=== PATIENT | male | born 1950 | race Caucasian/White ===

== ENCOUNTER 2018-10-28 12:32 | Emergency (ER) | payer OTHER ==
[~2018-10-28 12:32] MED LIST: LISI20TA29 PO
--- NOTE | 2018-10-28 12:43 | ER Report ---
History and Physical Time Seen By MD: 12:42 Hx. of Stated Complaint: saw his pcp for high bp. was told to keeping taking his lisinopril and chlorthalidon, and recheck in a month. pt states he was on vacation recently and missed several doses of his bp meds. HPI/ROS CHIEF COMPLAINT: Hypertension HISTORY OF PRESENT ILLNESS: 68-year-old male patient presents to emergency room with complaint of hypertension. Patient states that he has had a high blood pressure that he has noted for approximately 5-7 days. Patient states that he is not had any problems. Denies having any headache, chest pain, shortness of breath, nausea, vomiting, hematuria. Patient states that he has been taking his blood pressure medication. He did go see his primary care provider who told him to continue taking his blood pressure medication and follow-up in a month. He states that he was unhappy with that and came in for further evaluation. Patient denies having any fevers or chills. He states that he got back from vacation and noted he was having problems with his blood pressure he did have an episode where he was hot and sweaty. He states that resolved at night. REVIEW OF SYSTEMS: Respiratory: No cough, no dyspnea. Cardiovascular: No chest pain, no palpitations. Gastrointestinal: No vomiting, no abdominal pain. Musculoskeletal: No back pain. Allergies: Coded Allergies: No Known Drug Allergies (Unverified , 12/05/15) Home Meds Active Scripts Clonidine Hcl (CLONIDINE HCL) 0.1 Mg Tablet, 0.1 MG PO BID PRN for HYPERTENSION, #30 TAB Take 1 tab twice a day as needed for hypertension, Blood pressure >160/100 Prov:ANSELMO LYNCH [employer] SAF[employer]Y ENGINEER 10/28/18 Lisinopril (LISINOPRIL) 20 Mg Tablet, 20 MG PO QDAY, #30 TAB Prov:JACE SAMPSON TOP CLEANER 12/05/15 Past Medical/Surgical History Patient has a past medical history of hypertension. Patient surgical history left hip surgery. Reviewed Nurses Notes: Yes Hx Smoking: Yes Smoking Status: Current: Some Days Smoker Constitutional Vital Sign - Last 24 Hours 10/28/18 10/28/18 10/28/18 10/28/18 12:38 12:40 13:10 13:40 Temp 97.5 Pulse 79 76 73 73 Resp 18 B/P (MAP) 172/130 Pulse Ox 90 90 88 87 O2 Delivery Room Air 10/28/18 10/28/18 14:01 14:10 Pulse 66 B/P (MAP) 122/97 (105) Pulse Ox 92 Physical Exam General Appearance: The patient is alert, has no immediate need for airway protection and no current signs of toxicity. Respiratory: Chest is non tender, lungs are clear to auscultation. Cardiac: regular rate and rhythm Gastrointestinal: Abdomen is soft and non tender, no masses, bowel sounds normal. Musculoskeletal: Neck: Neck is supple and non tender. Extremities have full range of motion and are non tender. Skin: No rashes or lesions. DIFFERENTIAL DIAGNOSIS: After history and physical exam differential diagnosis was considered for hypertension, hypertensive urgency, hypertensive emergency. Medical Decision Making Data Points Result Diagram: 10/28/18 1303 10/28/18 1303 Laboratory Hematology Test 10/28/18 13:03 10/28/18 13:55 Red Blood Count 4.71 M/uL (4.00-5.60) Mean Corpuscular Volume 97.1 fL (80.0-96.0) Mean Corpuscular Hemoglobin 32.5 pg (26.0-33.0) Mean Corpuscular Hemoglobin Concent 33.5 g/dL (32.0-36.0) Red Cell Distribution Width 13.8 % (11.5-14.5) Mean Platelet Volume 8.5 fL (7.2-11.1) Neutrophils (%) (Auto) 66.3 % (39.4-72.5) Lymphocytes (%) (Auto) 22.3 % (17.6-49.6) Monocytes (%) (Auto) 10.5 % (4.1-12.4) Eosinophils (%) (Auto) 0.5 % (0.4-6.7) Basophils (%) (Auto) 0.4 % (0.3-1.4) Nucleated RBC Relative Count (auto) 0.0 /100WBC Neutrophils # (Auto) 2.5 K/uL (2.0-7.4) Lymphocytes # (Auto) 0.8 K/uL (1.3-3.6) Monocytes # (Auto) 0.4 K/uL (0.3-1.0) Eosinophils # (Auto) 0.0 K/uL (0.0-0.5) Basophils # (Auto) 0.0 K/uL (0.0-0.1) Nucleated RBC Absolute Count (auto) 0.00 K/uL Sodium Level 133 mmol/L (137-145) Potassium Level 3.4 mmol/L (3.5-5.0) Chloride Level 98 mmol/L (98-107) Carbon Dioxide Level 26 mmol/L (22-30) Blood Urea Nitrogen 13 mg/dl (9-21) Creatinine 1.00 mg/dl (0.66-1.25) Glomerular Filtration Rate Calc > 60.0 Random Glucose 105 mg/dl (75-110) Calcium Level 9.0 mg/dl (8.4-10.2) Total Bilirubin 0.9 mg/dl (0.2-1.3) Aspartate Amino Transf (AST/SGOT) 33 U/L (0-35) Alanine Aminotransferase (ALT/SGPT) 43 U/L (0-56) Alkaline Phosphatase 78 U/L (0-126) Troponin I < 0.012 ng/ml Total Protein 7.5 g/dl (6.3-8.2) Albumin 4.1 g/dl (3.5-5.0) Urine Color Straw Urine Clarity Clear Urine pH 7.0 pH (4.8-9.5) Urine Specific [place] 1.009 Urine Protein Negative mg/dL (NEGATIVE) Urine Glucose (UA) Negative mg/dL (NEGATIVE) Urine Ketones Negative mg/dL (NEGATIVE) Urine Blood Negative (NEGATIVE) Urine Nitrite Negative (NEGATIVE) Urine Bilirubin Negative (NEGATIVE) Urine Urobilinogen Negative mg/dL (0.2-1.9) Urine Leukocyte Esterase Negative (NEGATIVE) Urine RBC <1 /HPF (0-2/HPF) Urine WBC <1 /HPF (0-5/HPF) Urine Squamous Epithelial Cells None /LPF (</=FEW) Urine Bacteria Negative /HPF (NONE-FEW) Urine Mucus None /HPF (NONE-FEW) Chemistry Test 10/28/18 13:03 10/28/18 13:55 White Blood Count 3.8 k/uL (4.5-11.0) Red Blood Count 4.71 M/uL (4.00-5.60) Hemoglobin 15.3 g/dL (14.0-18.0) Hematocrit 45.7 % (42.0-52.0) Mean Corpuscular Volume 97.1 fL (80.0-96.0) Mean Corpuscular Hemoglobin 32.5 pg (26.0-33.0) Mean Corpuscular Hemoglobin Concent 33.5 g/dL (32.0-36.0) Red Cell Distribution Width 13.8 % (11.5-14.5) Platelet Count 211 K/uL (150-450) Mean Platelet Volume 8.5 fL (7.2-11.1) Neutrophils (%) (Auto) 66.3 % (39.4-72.5) Lymphocytes (%) (Auto) 22.3 % (17.6-49.6) Monocytes (%) (Auto) 10.5 % (4.1-12.4) Eosinophils (%) (Auto) 0.5 % (0.4-6.7) Basophils (%) (Auto) 0.4 % (0.3-1.4) Nucleated RBC Relative Count (auto) 0.0 /100WBC Neutrophils # (Auto) 2.5 K/uL (2.0-7.4) Lymphocytes # (Auto) 0.8 K/uL (1.3-3.6) Monocytes # (Auto) 0.4 K/uL (0.3-1.0) Eosinophils # (Auto) 0.0 K/uL (0.0-0.5) Basophils # (Auto) 0.0 K/uL (0.0-0.1) Nucleated RBC Absolute Count (auto) 0.00 K/uL Glomerular Filtration Rate Calc > 60.0 Calcium Level 9.0 mg/dl (8.4-10.2) Total Bilirubin 0.9 mg/dl (0.2-1.3) Aspartate Amino Transf (AST/SGOT) 33 U/L (0-35) Alanine Aminotransferase (ALT/SGPT) 43 U/L (0-56) Alkaline Phosphatase 78 U/L (0-126) Troponin I < 0.012 ng/ml Total Protein 7.5 g/dl (6.3-8.2) Albumin 4.1 g/dl (3.5-5.0) Urine Color Straw Urine Clarity Clear Urine pH 7.0 pH (4.8-9.5) Urine Specific [place] 1.009 Urine Protein Negative mg/dL (NEGATIVE) Urine Glucose (UA) Negative mg/dL (NEGATIVE) Urine Ketones Negative mg/dL (NEGATIVE) Urine Blood Negative (NEGATIVE) Urine Nitrite Negative (NEGATIVE) Urine Bilirubin Negative (NEGATIVE) Urine Urobilinogen Negative mg/dL (0.2-1.9) Urine Leukocyte Esterase Negative (NEGATIVE) Urine RBC <1 /HPF (0-2/HPF) Urine WBC <1 /HPF (0-5/HPF) Urine Squamous Epithelial Cells None /LPF (</=FEW) Urine Bacteria Negative /HPF (NONE-FEW) Urine Mucus None /HPF (NONE-FEW) Urinalysis Test 10/28/18 13:55 Urine Color Straw Urine Clarity Clear Urine pH 7.0 pH (4.8-9.5) Urine Specific [place] 1.009 Urine Protein Negative mg/dL (NEGATIVE) Urine Glucose (UA) Negative mg/dL (NEGATIVE) Urine Ketones Negative mg/dL (NEGATIVE) Urine Blood Negative (NEGATIVE) Urine Nitrite Negative (NEGATIVE) Urine Bilirubin Negative (NEGATIVE) Urine Urobilinogen Negative mg/dL (0.2-1.9) Urine Leukocyte Esterase Negative (NEGATIVE) Urine RBC <1 /HPF (0-2/HPF) Urine WBC <1 /HPF (0-5/HPF) Urine Squamous Epithelial Cells None /LPF (</=FEW) Urine Bacteria Negative /HPF (NONE-FEW) Urine Mucus None /HPF (NONE-FEW) EKG/Imaging EKG Interpretation 12 lead EKG from [facility]: Rhythm: normal sinus rhythm with a PVC, ventricular rate of 65 bpm [place]: normal QRS: normal ST segments: normal Imaging Exam type: CHEST PA LAT History: hypertension Comparison: None. Findings: The lungs are free of acute effusions, infiltrates or edema. The cardiac swelling is normal in size. The trachea is midline. There is a gentle dextroconvex scoliosis of the thoracic spine. IMPRESSION: 1. No acute cardiopulmonary process is seen Report Dictated By: Joy Miles MD at 10/28/2018 1:34 PM Report E-Signed By: Joy Miles MD at 10/28/2018 1:35 PM ED Course/Re-evaluation ED Course Patient was admitted to examined, history and physical were obtained. Differential diagnoses were considered. On examination lungs are clear, heart is regular, abdomen is soft nontender. Patient did have a elevated blood pressure of 170/130. Patient denied having any problems or concerns at this time. A CBC, CMP, troponin, chest x-ray were done. I did review the EKG which was done at the urgent care which showed a normal sinus rhythm with PVCs. Troponin was negative, labs were unremarkable, chest x-ray was negative. Patient was then treated with 20 mg of labetalol. I did have significant improvement on his blood pressure and he went down to 128/88. I discussed the results with the patient. We will go ahead and discharge patient home at this time. I will have him follow-up with his primary care provider in a month that she had recommended. We will give him a supply of clonidine that he can take as needed for blood pressure of 160/100. Patient verbalized understanding and agreement with plan. Patient will return to emergency room with any worsening of his condition. Decision to Disposition Date: Oct 28, 2018 Decision to Disposition Time: 14:25 Depart Departure Latest Vital Signs Vital Signs Date Time Temp Pulse Resp B/P (MAP) Pulse Ox O2 Delivery O2 Flow Rate FiO2 10/28/18 14:10 66 92 10/28/18 14:01 122/97 (105) 10/28/18 12:38 97.5 18 Room Air Impression: Primary Impression: Hypertension Condition: Improved Disposition: HOME OR SELF-CARE New Scripts Clonidine Hcl (CLONIDINE HCL) 0.1 Mg Tablet 0.1 MG PO BID PRN for HYPERTENSION, #30 TAB Take 1 tab twice a day as needed for hypertension, Blood pressure >160/100 Prov: ANSELMO LYNCH 10/28/18 Patient Instructions: Hypertension (ED) Additional Instructions: Continue with normal medications. Follow up with Radha as directed in 1 month. Take the Clonidine as needed for blood pressure >160/100. Return to the ER if condition worsens. Get plenty of rest. Continue to monitor blood pressure. Problem Qualifiers Primary Impression: Hypertension Hypertension type: essential hypertension Qualified Codes: I10 - Essential (primary) hypertension ANSELMO LYNCH Oct 28, 2018 12:43
[2018-10-28 13:14] LABS: PLATELET COUNT, AUTOMATED 211 K/uL (150-450)
--- NOTE | 2018-10-28 13:40 | RADIOLOGY IMAGING REPORT ---
FACILITY: [facility] PATIENT NAME: Abhinav Adams : 1950 MR: [id number] V: [id number] EXAM DATE: ORDERING PHYSICIAN: ANSELMO LYNCH TECHNOLOGIST: Location: [facility] Patient: Abhinav Adams : 1950 Visit/Account:[id number] Date of Sevice: 10/28/2018 Exam type: CHEST PA LAT History: hypertension Comparison: None. Findings: The lungs are free of acute effusions, infiltrates or edema. The cardiac swelling is normal in size. The trachea is midline. There is a gentle dextroconvex scoliosis of the thoracic spine. IMPRESSION: 1. No acute cardiopulmonary process is seen Report Dictated By: Joy Miles MD at 10/28/2018 1:34 PM Report E-Signed By: Joy Miles MD at 10/28/2018 1:35 PM [email or web address]
[2018-10-28] MEDS ORDERED: LABETALOL HCL 20 MG/4 ML SYR IVP ONE (13:45)
[2018-10-28 14:01] VITALS: BP 122/97
[2018-10-28] MEDS ORDERED: CLON-327 PO (14:27)
== END 2018-10-28 14:42 | disposition home or self-care (01) ==
LOC: ER 12:52
DX: I10 Essential (primary) hypertension (principal)
CPT/HCPCS: 71046; 81001; 84484; 85025; 96374; 99283; J3490; 82040; 82247; 82310; 82374; 82435; 82565; 82947; 84075; 84132; 84155; 84295; 84450; 84460; 84520